=== PATIENT | female | born 1960 | race Caucasian/White ===

== ENCOUNTER 2018-05-03 09:37 | Inpatient (IN) | payer BC ==
[~2018-05-03] VITALS: Ht 152.4 cm; Wt 69.1 kg
[2018-05-03] VITALS (21 sets, daily range): BP systolic 87–120; BP diastolic 44–75
[2018-05-03] MEDS ORDERED: LIDOCAINE HCL-MPF 2% 5ML VIAL ONE (09:57)
[2018-05-03] MEDS ORDERED: ATROPINE SULFATE 0.1 MG/ML 10 ML SYG IVP ONE (10:02)
[2018-05-03] MEDS ORDERED: PHENYLEPHRINE HCL 10 MG/ML 1ML VIAL IV ONE (10:02)
[2018-05-03] MEDS ORDERED: PRASUGREL HCL 10 MG TABLET ONE (10:03)
[2018-05-03] MEDS ORDERED: EPTIFIBATIDE 2 MG/ML 10 ML VIAL IVP ONE (10:40)
[2018-05-03] MEDS ORDERED: EPTIFIBATIDE 75MG/100ML BOTTLE 100 ML IV ONE (10:50)
[2018-05-03] MEDS ORDERED: IOHEXOL-350 50ML VIAL IV ONE (11:20)
[2018-05-03] MEDS ORDERED: FUROSEMIDE 10 MG/ML 4ML VIAL ONE ×2 (11:23→17:42)
[2018-05-03] MEDS ORDERED: TEMAZEPAM 30 MG CAP PO PRN (11:45)
[2018-05-03] MEDS ORDERED: ACETAMINOPHEN 325 MG TAB PO PRN (11:45)
[2018-05-03 11:51] LABS: HEMATOCRIT 39.1 % (36-48); MEAN CORPUSCULAR HEMOGLOBIN 30.9 pg (27.0-33.0); MEAN CORPUSCULAR HGB CONC 33.9 g/dL (32.0-36.0); MEAN CORPUSCULAR VOLUME 91.1 fL (79-99); PLATELET COUNT (AUTO) 273 K/uL (130-400); RED BLOOD CELL COUNT(AUTO) 4.29 MIL/uL (4.00-5.50); RED CELL DISTRIBUTION WIDTH 13.7 % (11.0-15.5); WHITE BLOOD COUNT (AUTO) 12.9 K/uL (4.8-10.8)
[2018-05-03 12:03] LABS: CREATININE 0.9 mg/dL (0.5-1.5); POTASSIUM 3.7 mmol/L (3.5-5.1)
[2018-05-03 12:17] LABS: PARTIAL THROMBOPLASTIN TIME 83.9 SEC (26.3-35.5)
[2018-05-03 12:25] LABS: INR 4.57 (0.85-1.15); PROTHROMBIN TIME 46.6 SEC (9.6-11.6)
[2018-05-03 12:37] LABS: TROPONIN I 9.99 ng/mL (0.00-0.06)
[2018-05-03 12:49] LABS: B-TYPE NATRIURETIC PEPTIDE 31 pg/mL (0-100)
[2018-05-03] MEDS: POTASSIUM CHLORIDE 10 MEQ/TAB.SA PO SCH ×2 (13:44→17:38)
[2018-05-03 15:46] LABS: INR 1.02 (0.85-1.15); PROTHROMBIN TIME 10.7 SEC (9.6-11.6)
[2018-05-03 16:04] LABS: PARTIAL THROMBOPLASTIN TIME 35.9 SEC (26.3-35.5)
[2018-05-03] MEDS ORDERED: EPTIFIBATIDE 75MG/100ML BOTTLE 100 ML IV SCH (17:45)
[2018-05-03 18:21] LABS: TROPONIN I 111.98 ng/mL (0.00-0.06)
[2018-05-03] MEDS: FUROSEMIDE 10 MG/ML 2ML VIAL IV SCH (18:51)
[2018-05-03] MEDS: CARVEDILOL 6.25 MG TABLET PO SCH (21:22)
[2018-05-03] MEDS: ATORVASTATIN CALCIUM 40 MG TABLET PO SCH (21:22)
[2018-05-03] MEDS: LISINOPRIL 10 MG TABLET PO SCH (21:23)
[2018-05-04] VITALS (13 sets, daily range): BP systolic 92–125; BP diastolic 53–85
[2018-05-04 03:46] LABS: HEMATOCRIT 44.4 % (36-48); MEAN CORPUSCULAR HEMOGLOBIN 29.6 pg (27.0-33.0); MEAN CORPUSCULAR HGB CONC 32.8 g/dL (32.0-36.0); MEAN CORPUSCULAR VOLUME 90.2 fL (79-99); PLATELET COUNT (AUTO) 289 K/uL (130-400); RED BLOOD CELL COUNT(AUTO) 4.92 MIL/uL (4.00-5.50); RED CELL DISTRIBUTION WIDTH 13.7 % (11.0-15.5); WHITE BLOOD COUNT (AUTO) 18.4 K/uL (4.8-10.8)
[2018-05-04 04:22] LABS: CREATININE 0.9 mg/dL (0.5-1.5); POTASSIUM 3.6 mmol/L (3.5-5.1)
[2018-05-04] MEDS: FUROSEMIDE 10 MG/ML 2ML VIAL IV SCH (04:32)
[2018-05-04] MEDS: POTASSIUM CHLORIDE 10 MEQ/TAB.SA PO SCH ×4 (04:32→20:17)
[2018-05-04] MEDS: PRASUGREL HCL 10 MG TABLET PO SCH (09:16)
[2018-05-04] MEDS: ASPIRIN 81MG TAB.CHEW PO SCH (09:16)
[2018-05-04] MEDS: CARVEDILOL 6.25 MG TABLET PO SCH ×2 (09:16→20:20)
[2018-05-04] MEDS: PANTOPRAZOLE SODIUM 40 MG TABLET.DR PO SCH (09:17)
[2018-05-04] MEDS: ATORVASTATIN CALCIUM 40 MG TABLET PO SCH (20:18)
[2018-05-04] MEDS: LISINOPRIL 10 MG TABLET PO SCH (20:18)
[2018-05-05 03:50] VITALS: BP 91/50
[2018-05-05 04:08] LABS: POTASSIUM 3.4 mmol/L (3.5-5.1)
[2018-05-05] MEDS: POTASSIUM CHLORIDE 10 MEQ/TAB.SA PO SCH ×3 (04:36→20:54)
[2018-05-05 07:51] VITALS: BP 89/59
[2018-05-05] MEDS: CARVEDILOL 6.25 MG TABLET PO SCH ×2 (08:11→21:00)
[2018-05-05] MEDS: ASPIRIN 81MG TAB.CHEW PO SCH (09:00)
[2018-05-05] MEDS: PRASUGREL HCL 10 MG TABLET PO SCH (09:00)
[2018-05-05] MEDS: PANTOPRAZOLE SODIUM 40 MG TABLET.DR PO SCH (09:00)
[2018-05-05] MEDS: FUROSEMIDE 20 MG TABLET PO SCH (09:00)
[2018-05-05] MEDS ORDERED: POTASSIUM CHLORIDE 20 MEQ ERTAB PO SCH (11:15)
[2018-05-05 11:50] VITALS: BP 88/53
[2018-05-05 16:08] VITALS: BP 90/63
[2018-05-05 19:00] VITALS: BP 83/50
[2018-05-05] MEDS: ATORVASTATIN CALCIUM 40 MG TABLET PO SCH (20:54)
[2018-05-05] MEDS: LISINOPRIL 10 MG TABLET PO SCH (21:00)
[2018-05-05 23:00] VITALS: BP 81/61
[2018-05-06 03:00] VITALS: BP 90/55
[2018-05-06 04:06] LABS: BASOPHILS % (AUTO) 0.9 % (0.0-5.0); EOSINOPHILS % (AUTO) 3.3 % (0.0-8.0); HEMATOCRIT 38.2 % (36-48); LYMPHOCYTES % (AUTO) 26.8 % (21.0-51.0); MEAN CORPUSCULAR HEMOGLOBIN 30.2 pg (27.0-33.0); MEAN CORPUSCULAR HGB CONC 33.4 g/dL (32.0-36.0); MEAN CORPUSCULAR VOLUME 90.3 fL (79-99); MONOCYTES % (AUTO) 10.6 % (3.0-13.0); NEUTROPHILS % (AUTO) 58.4 % (40.0-77.0); PLATELET COUNT (AUTO) 230 K/uL (130-400); RED BLOOD CELL COUNT(AUTO) 4.24 MIL/uL (4.00-5.50); RED CELL DISTRIBUTION WIDTH 13.5 % (11.0-15.5); WHITE BLOOD COUNT (AUTO) 13.7 K/uL (4.8-10.8)
[2018-05-06 04:24] LABS: CREATININE 1.1 mg/dL (0.5-1.5); POTASSIUM 4.1 mmol/L (3.5-5.1)
[2018-05-06] MEDS: POTASSIUM CHLORIDE 10 MEQ/TAB.SA PO SCH (05:36)
[2018-05-06 07:33] VITALS: BP 83/52
[2018-05-06] MEDS: PANTOPRAZOLE SODIUM 40 MG TABLET.DR PO SCH (08:08)
[2018-05-06] MEDS: PRASUGREL HCL 10 MG TABLET PO SCH (08:08)
[2018-05-06] MEDS: ASPIRIN 81MG TAB.CHEW PO SCH (08:08)
[2018-05-06 08:38] LABS: APPEARANCE,URINE Clear (CLEAR); BILIRUBIN,URINE Negative (NEGATIVE); COLOR,URINE Yellow (YELLOW); GLUCOSE, URINE (UA) Negative (NEGATIVE); KETONES,URINE Trace mg/dL (NEGATIVE); LEUKOCYTE ESTERASE ,URINE Trace (NEGATIVE); NITRATE,URINE Positive (NEGATIVE); OCCULT BLOOD,URINE Negative (NEGATIVE); PROTEIN,URINE Negative (NEGATIVE)
[2018-05-06 08:52] LABS: BACTERIA,URINE Many /HPF (None Seen); RBC,URINE 0-1 /HPF (0-1); SQUAMOUS EPITHELIAL CELL,UR Rare /HPF (0-2); WBC,URINE 0-1 /HPF (0-1)
[2018-05-06] MEDS: FUROSEMIDE 20 MG TABLET PO SCH (09:00)
[2018-05-06] MEDS ORDERED: ASPI-1005 PO (09:04)
[2018-05-06] MEDS ORDERED: ATOR40TA69 PO (09:04)
[2018-05-06] MEDS ORDERED: LISI10TA7 PO (09:04)
[2018-05-06] MEDS ORDERED: PRAS10TA6 PO (09:04)
[2018-05-06] MEDS ORDERED: CARV6.2579 PO (09:04)
[2018-05-06 09:11] VITALS: BP 83/52
[2018-05-06] MEDS: CARVEDILOL 6.25 MG TABLET PO SCH (09:11)
[2018-05-06] MEDS ORDERED: LEVO500T2 PO (09:17)
== END 2018-05-06 10:15 | disposition home or self-care (01) | DRG 246 ==
LOC: EDH 09:37 → 2BH 09:38 → 2CH 18:48 → 2AH 05-04 15:46
PROVIDERS: ADMIT Hospitalist; ATTEND Hospitalist
PROC: 027135Z Dilation of Coronary Artery, Two Arteries with Two Drug-eluting Intraluminal Devices, Percutaneous Approach (ICD-10-PCS; principal; 2018-05-03)
PROC: 4A023N7 Measurement of Cardiac Sampling and Pressure, Left Heart, Percutaneous Approach (ICD-10-PCS; 2018-05-03)
PROC: B2121ZZ Fluoroscopy of Single Coronary Artery Bypass Graft using Low Osmolar Contrast (ICD-10-PCS; 2018-05-03)
PROC: B2111ZZ Fluoroscopy of Multiple Coronary Arteries using Low Osmolar Contrast (ICD-10-PCS; 2018-05-03)
PROC: 3E073PZ Introduction of Platelet Inhibitor into Coronary Artery, Percutaneous Approach (ICD-10-PCS; 2018-05-03)
DX: T82.855A Stenosis of coronary artery stent, initial encounter (principal); I21.09 ST elevation (STEMI) myocardial infarction involving other coronary artery of anterior wall; R57.0 Cardiogenic shock; I50.23 Acute on chronic systolic (congestive) heart failure; N39.0 Urinary tract infection, site not specified; Y83.8 Other surgical procedures as the cause of abnormal reaction of the patient, or of later complication, without mention of misadventure at the time of the procedure; I25.10 Atherosclerotic heart disease of native coronary artery without angina pectoris; E78.5 Hyperlipidemia, unspecified; F17.210 Nicotine dependence, cigarettes, uncomplicated; I25.5 Ischemic cardiomyopathy; Y92.89 Other specified places as the place of occurrence of the external cause; Z79.82 Long term (current) use of aspirin; Z79.899 Other long term (current) drug therapy; Z88.0 Allergy status to penicillin; Z90.49 Acquired absence of other specified parts of digestive tract; Z95.5 Presence of coronary angioplasty implant and graft
CPT/HCPCS: 36415; 80048; 80061; 81001; 82550; 83874; 83880; 84484; 85025; 85027; 85610; 85730; 93005; 93306; 93458; C1725; C1760; C1769; C1887; C1894; C9600; C9606; J0461; J1327; J1644; J1940; J2370; J3490; Q9967

== ENCOUNTER → 2018-05-14 | Outpatient (CLI) | payer BC ==
[~2018-05-14] MED LIST: ASPI-1005 PO; ATOR40TA69 PO; CARV6.2579 PO; LEVO500T2 PO; LISI10TA7 PO; PRAS10TA6 PO
== END | disposition home or self-care (01) ==
LOC: RAH 12:59
PROVIDERS: ATTEND Internal Medicine Cardiovascular Disease
DX: Z04.9 Encounter for examination and observation for unspecified reason (principal); R10.31 Right lower quadrant pain; E78.5 Hyperlipidemia, unspecified; I25.10 Atherosclerotic heart disease of native coronary artery without angina pectoris; Z90.49 Acquired absence of other specified parts of digestive tract; Z79.899 Other long term (current) drug therapy
CPT/HCPCS: 76882